=== PATIENT | male | born 1995 | race African-American/Black ===

== ENCOUNTER 2018-06-02 21:42 | Inpatient (IN) | payer SELFPAY ==
[2018-06-02 22:33] LABS: HEMATOCRIT 46.1 % (42.0-52.0); MEAN CORPUSCULAR HEMOGLOBIN 28.7 pg (27.0-33.0); MEAN CORPUSCULAR HGB CONC 32.5 g/dl (32.0-36.5); MEAN CORPUSCULAR VOLUME 88.1 fl (80.0-96.0); PLATELET COUNT, AUTOMATED 192 10^3/uL (150-450); RED BLOOD COUNT 5.23 10^6/uL (4.30-6.10); RED CELL DISTRIBUTION WIDTH 13.2 % (11.5-14.5); WHITE BLOOD COUNT 4.3 10^3/uL (4.0-10.0)
[2018-06-02 22:54] LABS: AMPHETAMINES LEVEL URINE NEGATIVE (NEGATIVE); BARBITURATES URINE NEGATIVE (NEGATIVE); BENZODIAZEPINES URINE NEGATIVE (NEGATIVE); CANNABINOIDS URINE POSITIVE (NEGATIVE); COCAINE METABOLITE URINE NEGATIVE (NEGATIVE); METHADONE URINE NEGATIVE (NEGATIVE); OPIATES URINE NEGATIVE (NEGATIVE); PHENCYCLIDINE URINE NEGATIVE (NEGATIVE)
[2018-06-02 23:05] LABS: ALBUMIN 4.1 GM/DL (3.2-5.2); ALBUMIN/GLOBULIN RATIO 1.05 (1.00-1.93); ALKALINE PHOSPHATASE 104 U/L (45-117); ALT/SGPT 37 U/L (12-78); ANION GAP 7 MEQ/L (8-16); AST/SGOT 27 U/L (7-37); BILIRUBIN,DIRECT < 0.1 MG/DL (0.0-0.2); BILIRUBIN,TOTAL 0.3 MG/DL (0.2-1.0); BLOOD UREA NITROGEN 14 MG/DL (7-18); CARBON DIOXIDE LEVEL 27 MEQ/L (21-32); CHLORIDE LEVEL 107 MEQ/L (98-107); CREATININE FOR GFR 1.05 MG/DL (0.70-1.30); ETHYL ALCOHOL (ETHANOL) < 0.003 % (0.000-0.010); GLUCOSE, FASTING 82 MG/DL (70-100); POTASSIUM SERUM 4.2 MEQ/L (3.5-5.1); SALICYLATE LEVEL < 1.7 MG/DL (5.0-30.0); SODIUM LEVEL 141 MEQ/L (136-145)
[2018-06-02 23:23] LABS: ACETAMINOPHEN LEVEL < 2.0 UG/ML (10.0-30.0)
[2018-06-02] MEDS ORDERED: ACETAMINOPHEN TAB 650MG DOSE (2X325MG) PO (23:30)
[2018-06-02] MEDS ORDERED: traZODone 50 MG TAB PO (23:30)
[2018-06-02] MEDS ORDERED: LORazepam 1 MG TAB PO (23:30)
[2018-06-02] MEDS: risperiDONE 1 MG TAB PO (23:30)
[2018-06-02] MEDS ORDERED: MOM 30ML SUSPENSION UDC PO (23:30)
[2018-06-02] MEDS ORDERED: MAALOX 30 ML SUSP *UDC PO (23:30)
[2018-06-03] MEDS: CitaloPRAM (CeleXA) 10 MG TABLET PO (09:48)
[2018-06-03] MEDS: risperiDONE 0.5 MG TAB PO (09:49)
[2018-06-03] MEDS: risperiDONE 1 MG TAB PO (21:29)
[2018-06-04] MEDS: risperiDONE 0.5 MG TAB PO (08:37)
[2018-06-04] MEDS: CitaloPRAM (CeleXA) 10 MG TABLET PO (08:37)
[2018-06-04] MEDS: risperiDONE 1 MG TAB PO (21:25)
[2018-06-05] MEDS: risperiDONE 0.5 MG TAB PO (09:32)
[2018-06-05] MEDS: CitaloPRAM (CeleXA) 10 MG TABLET PO (09:32)
[2018-06-05] MEDS: IBUPROFEN 800 MG TAB PO (13:46)
[2018-06-05] MEDS: risperiDONE 2 MG TAB PO (21:22)
[2018-06-06] MEDS: CitaloPRAM (CeleXA) 20 MG TAB PO (08:10)
[2018-06-06] MEDS: risperiDONE 2 MG TAB PO (21:13)
[2018-06-07] MEDS: CitaloPRAM (CeleXA) 20 MG TAB PO (07:54)
[2018-06-07] MEDS: risperiDONE 2 MG TAB PO (21:32)
[2018-06-08] MEDS: CIPRODEX OTIC SUSP 7.5ML AD (09:00)
[2018-06-08] MEDS ORDERED: CitaloPRAM (CeleXA) 20 MG TAB PO (21:00)
== END 2018-06-08 14:25 | disposition home or self-care (01) | DRG 751 ==
LOC: M PSY 06-03 00:13 → M ED 21:42 → M ED INP 23:30
DX: F32.3 Major depressive disorder, single episode, severe with psychotic features (principal); R45.850 Homicidal ideations; R45.851 Suicidal ideations; F43.10 Post-traumatic stress disorder, unspecified; F12.90 Cannabis use, unspecified, uncomplicated; Z91.410 Personal history of adult physical and sexual abuse; M54.5 Low back pain